=== PATIENT | male | born 1995 | race Caucasian/White ===

== ENCOUNTER → 2017-03-18 | Outpatient (CLI) | payer OTHER ==
[~2017-03-18] MED LIST: MOTRIN800 MG PO
--- NOTE | ~2017-03-18 | ST ---
[place], [place] EXERCISE STRESS TEST REPORT NAME: MINOR ENGLE UNIT #: [id number] ROOM: DOCTOR: LEA QUINONES MD BIRTHDATE: [birth year] DOS: 03/18/2017 INDICATION: . PROCEDURE: The patient exercised on treadmill using Homar protocol, the patient exercised for 6 minutes and 30 seconds, reaching 92% of his maximum predicted heart rate. Maximum workload was 8 mets. Test was terminated due to achieving target heart rate. Foot pain was noticed. Double product 27,300. BLOOD PRESSURE RESPONSE: Resting blood pressure 128/74 with ending blood pressure 150/64. ELECTROCARDIOGRAM INTERPRETATION: Resting electrocardiogram showed normal sinus rhythm, heart rate of 82. Early repolarization. Tiny Q-wave in II, III, aVF. At the peak of the stress test, there was no evidence of any significant ST or T-wave changes suggestive of myocardial ischemia. No arrhythmias were noted. SUMMARY: 1. Adequate stress test. 2. Negative treadmill stress test for stress induced myocardial ischemia. 3. No arrhythmias were noted. 4. Normal blood pressure at rest with normal blood pressure response to exercise. 5. No Myoview were done. LEA QUINONES MD CM:STRESS:EXERCISE STRESS TEST REPORT [id number] LEA QUINONES MD
== END | disposition home or self-care (01) ==
LOC: CARD 00:41
DX: Z01.818 Encounter for other preprocedural examination (principal); R94.31 Abnormal electrocardiogram [ECG] [EKG]; E66.9 Obesity, unspecified; I25.3 Aneurysm of heart

== ENCOUNTER → 2017-08-03 | Outpatient (CLI) | payer BC, OTHER ==
[2017-08-03 08:58] LABS: BASO # 0.1 10*3/uL (0.0-0.1); EOS # 0.2 10*3/uL (0.0-0.4); EOS % 1.6 % (1.0-4.0); HEMATOCRIT 48.2 % (42.0-52.0); HEMOGLOBIN 15.9 g/dl (14.0-18.0); LYMPH # 3.2 10*3/uL (1.3-4.4); LYMPH % 34.3 % (27.0-41.0); MEAN CORPUSCULAR HGB 28.7 pg (27.0-31.0); MEAN PLATELET VOLUME 10.3 fl (9.6-12.3); MONO # 0.9 10*3/uL (0.1-1.0); MONO % 9.3 % (3.0-9.0); NEUT % 53.4 % (47.0-73.0); PLATELET COUNT AUTOMATED 270 10*3/uL (130-400); RED BLOOD COUNT 5.54 10*6/uL (4.50-5.90); RED CELL DISTRI WIDTH 12.3 % (0-14.5); WHITE BLOOD COUNT 9.4 10*3/uL (4.8-10.8)
[2017-08-03 09:31] LABS: ALBUMIN 4.2 gm/dl (3.1-4.5); ALKALINE PHOSPHATASE 84 U/L (45-117); BUN 11 mg/dl (7-24); CHLORIDE 98 mmol/L (98-107); CHOLESTEROL 114 mg/dL (<200); CREATININE 0.78 mg/dL (0.70-1.30); POTASSIUM 3.9 mmol/L (3.5-5.1); SGOT/AST 38 IU/L (3-35); SGPT/ALT 87 U/L (12-78); SODIUM 136 mmol/L (136-145); TOTAL PROTEIN 8.9 gm/dL (6.4-8.2)
== END | disposition home or self-care (01) ==
LOC: LAB 08:12
PROVIDERS: Physician Assistant
DX: K91.2 Postsurgical malabsorption, not elsewhere classified (principal)